=== PATIENT | female | born 1945 | race Caucasian/White ===

== ENCOUNTER 2017-09-05 18:06 | Emergency (ER) | payer OTHER ==
[~2017-09-05] VITALS: Ht 175.3 cm; Wt 70.1 kg
[~2017-09-05 18:06] MED LIST: ALPH200C2 PO; ASPI81TA28 PO; CHOL1LIQ PO; COEN100C3 PO; CRS5 PO; FISHOIL PO; LEVO50TA6 PO; LISI-461 PO; MULT-506 PO; NEPA0.6D OPL; PRED1SUS3 OPL; [UNRECOGNIZED DRUG - CODE] PO; [UNRECOGNIZED DRUG - CODE] PO; [UNRECOGNIZED DRUG - OTHER] PO; [UNRECOGNIZED DRUG - OTHER] PO
[2017-09-05 18:16] VITALS: TEMP 36.7; Ht 175.3 cm; Wt 70.1 kg
[2017-09-05] MEDS ORDERED: OMEG10007 PO (18:30)
[2017-09-05] MEDS ORDERED: GELATIN SPONGE 12-7MM ONE (18:45)
[2017-09-05 20:03] VITALS: BP 156/83; PULSE 75; O2SAT 98
--- NOTE | 2017-09-05 23:41 | EMERGENCY ROOM VISIT NOTE ---
History Report prepared by Ashley: Chela Sung Under the Supervision of: Noemy DohertyO. First contact with patient: 18:36 Chief Complaint: OTHER COMPLAINT Stated Complaint: S/P MOSH REMOVAL, SEEPING AT SUTURES History of Present Illness The patient is a 72 year old female who presents to the Emergency Room with complaints of bleeding sutures on her face beginning today. The patient states that she had mohs surgery yesterday and had 48 stitches. She states that today her sutures began to bleed and that the bleeding worsened later in the day, and that it was bleeding into her eye. Patient denies any headaches, change in vision with the exception of when she gets blood in the ER, chest pain, shortness of breath, nausea, dizziness or lightheadedness. She has been trying to keep her head elevated at all times. No bleeding disorders. She does not take any blood thinners. Source of History: patient Onset: today Position: head Quality: other (bleeding sutures ) Timing: worsening Review of Systems See HPI for pertinent positives & negatives. A total of 10 systems reviewed and were otherwise negative. Past Medical & Surgical Medical Problems: (1) Basal cell carcinoma Surgical Problems: (1) Status post Mohs surgery Family History No pertinent family history stated. Social History Smoking Status: Never Smoker Marital Status: Housing Status: lives with significant other Current/Historical Medications Scheduled Aspirin (Aspirin Ec), 81 MG PO HS Cholecalciferol (Vitamin D3), 1 DROP PO QAM Coenzyme Q10 (Ubidecarenone) (Co Q-10), 100 MG PO QAM Fish Oil ([place]-3), 1 CAP PO DAILY Levothyroxine Sodium (Levothyroxine Sodium), 50 MCG PO EARLY AM Lisinopril (Lisinopril), 10 MG PO QAM Magnesium Gluconate (Magnesium Gluconate), 500 MG PO QAM Multivitamin (Multivitamin), 1 TAB PO Q2D Rosuvastatin Calcium (Crestor), 5 MG PO HS Allergies Coded Allergies: Penicillins (Verified Allergy, Unknown, ANAPHYLACTIC, 09/05/17) Physical Exam Vital Signs Date Time Temp Pulse Resp B/P (MAP) Pulse Ox O2 Delivery O2 Flow Rate FiO2 09/05/17 20:03 75 18 156/83 98 09/05/17 18:16 36.7 93 18 178/90 97 Room Air Physical Exam GENERAL: Sitting up in bed, alert, well appearing, well nourished, no distress, non-toxic FACE: Pressure dressing in place over nose with venous oozing down the side of the left nostril on face. Dressing was removed with large amount of clot present. Sutures in place between both eyebrows tracking along the right side of the nose, wrapping distally down the left side of the naris. Small amount of nevous oozing from tip of nose. Surgifoam placed, pressure dressing reapplied. EYE EXAM: normal conjunctiva. PERRL and EOM's grossly intact. OROPHARYNX: no exudate, no erythema, lips, buccal mucosa, and tongue normal and mucous membranes are moist NECK: supple, no nuchal rigidity, no adenopathy, non-tender LUNGS: Clear to auscultation. Normal chest wall mechanics HEART: no murmurs, S1 normal and S2 normal ABDOMEN: abdomen soft, non-tender, normo-active bowel sounds, no masses, no rebound or guarding. UPPER EXTREMITIES: upper extremities are grossly normal. LOWER EXTREMITIES: No pitting edema. NEURO EXAM: Normal sensorium, ambulated without difficulty. Medical Decision & Procedures Medications Administered Medications (Trade) Dose Ordered Sig/Sommer Route Start Time Stop Time Status Last Admin Dose Admin Gelatin (Surgifoam Sponge 12-7MM (SMALL)) 1 ea STK-MED ONCE .ROUTE 09/05/17 18:45 09/05/17 18:46 DC 09/05/17 18:45 1 EA ED Course ED COURSE: Vital signs were reviewed and showed hypertension. The patients medical record was reviewed The above diagnostic studies were performed and reviewed. ED treatments and interventions as stated above. 1838: The patient was evaluated in room C6. A complete history and physical examination was performed. 8: I reviewed the patient's case with with Dr. Wilson of dermatology. He advised to apply bulk dressing and to leave surgical film. He stated that the patient will follow-up with him. 1933: The patient is doing well and not bleeding. 1949: I checked on the patient again and she has no active bleeding. 1999: Upon reevaluation, the patient is feeling better. I discussed the findings and the treatment plan with the patient. She verbalizes agreement and understanding. She was discharged home. Medical Decision Patient is a 72-year-old female who presents to ER for bleeding following surgery performed yesterday. Pressure dressing was removed off of the nose. There is a large amount of clot was removed. Small amount of bleeding was visualized between 2 sutures on the distal aspect of the nose. Surgifoam was placed. Pressure dressing reapplied. Discussed with her surgeon. He agreed with the treatment plan. She was discharged follow-up with him tomorrow. Discussed with Pt concerning signs and symptoms to watch out for. Pt was instructed to follow up with their PCP and discussed with the patient their option to return to the ED at anytime for persistent or worsening symptoms. The appropriate anticipatory guidance and out-patient management, including indications for return to the emergency department, were explained at length to the patient and understood. Medication Reconcilliation Current Medication List: was personally reviewed by me Blood Pressure Screening Patient's blood pressure: Elevated blood pressure Blood pressure disposition: Elevated BP felt to be situational Consults Time Called: 1848 Consulting Physician: Dr. Wilson- Isreal Returned Call: [phone] I reviewed the patient's case with with Dr. Wilson of dermatology. He advised to apply bulk dressing and to leave surgical film. He stated that the patient will follow-up with him. Impression Primary Impression: Post-op bleeding Scribe Attestation The scribe's documentation has been prepared under my direction and personally reviewed by me in its entirety. I confirm that the note above accurately reflects all work, treatment, procedures, and medical decision making performed by me. Departure Information Dispostion Home / Self-Care Referrals Indu Wang M.D. (PCP) Forms HOME CARE DOCUMENTATION FORM, IMPORTANT VISIT INFORMATION, WORK / SCHOOL INSTRUCTIONS Patient Instructions [facility], My [facility] Additional Instructions Please follow up with your primary care doctor with in the next 24 hours. Any worsening of your symptoms, please return to the ED immediately. This includes any fevers greater than 100.4, bleeding that does not stop with pressure held for 20 minutes, or any other concerning signs or symptoms from your standpoint. Please keep your head elevated at all times. If bleeding recurs please also pressure as instructed. Please follow up with your surgeon tomorrow. Problem Qualifiers Primary Impression: Post-op bleeding Surgical complication system/body Area: subcutaneous tissue Procedure type: dermatologic Qualified Codes: L76.21 - Postprocedural hemorrhage of skin and subcutaneous tissue following a dermatologic procedure
== END 2017-09-05 20:09 | disposition home or self-care (01) ==
LOC: C.EDB 18:08 → C.EDC 20:09
DX: L76.21 Postprocedural hemorrhage of skin and subcutaneous tissue following a dermatologic procedure (principal); Z79.899 Other long term (current) drug therapy; C44.91 Basal cell carcinoma of skin, unspecified